=== PATIENT | male | born 2000 | race Caucasian/White ===

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

== ENCOUNTER 2019-02-11 12:50 | Emergency (ER) | payer OTHER, MEDICAID ==
[~2019-02-11] VITALS: Ht 182.9 cm; Wt 77.2 kg
[2019-02-11 12:53] VITALS: Ht 182.9 cm; Wt 77.2 kg
[2019-02-11 14:01] VITALS: BP 116/60
== END 2019-02-11 14:01 | disposition home or self-care (01) ==
LOC: ED 12:50
DX: R19.7 Diarrhea, unspecified (principal); R50.9 Fever, unspecified

== ENCOUNTER 2019-12-02 10:08 | Emergency (ER) | payer OTHER ==
[~2019-12-02] VITALS: Ht 167.6 cm; Wt 85.3 kg
[2019-12-02 10:13] VITALS: Ht 167.6 cm; Wt 85.3 kg
[2019-12-02 11:26] VITALS: BP 125/59
== END 2019-12-02 11:26 | disposition home or self-care (01) ==
LOC: ED 10:08
DX: R51 Headache (principal); Z20.828 Contact with and (suspected) exposure to other viral communicable diseases
CPT/HCPCS: U0003-CS